=== PATIENT | female | born 1995 | race Caucasian/White ===

== ENCOUNTER → 2019-05-05 | Outpatient (CLI) | payer OTHER ==
--- NOTE | 2019-05-05 12:10 | RADIOLOGY REPORT (SQ) ---
EXAM DESCRIPTION: CHEST PA/LATERAL COMPLETED DATE/TIME: 05/05/2019 11:03 am REASON FOR STUDY: ENCOUNTER FOR SCREENING FOR RESPIRATORY TUBERCULOSIS COMPARISON: None. EXAM PARAMETERS: NUMBER OF VIEWS: two views TECHNIQUE: Digital Frontal and Lateral radiographic views of the chest acquired. RADIATION DOSE: NA LIMITATIONS: none FINDINGS: LUNGS AND PLEURA: No opacities, masses or pneumothorax. No pleural effusion. MEDIASTINUM AND HILAR STRUCTURES: No masses or contour abnormalities. HEART AND VASCULAR STRUCTURES: Heart normal size. No evidence for failure. BONES: No acute findings. HARDWARE: None in the chest. OTHER: No other significant finding. IMPRESSION: Normal study. There is no evidence of active or prior pulmonary tuberculosis. TECHNICAL DOCUMENTATION: JOB ID: [id number] [employer]- All Rights Reserved Reading location - IP/workstation name: [email or web address]
== END ==
LOC: OD 10:45
PROVIDERS: ATTEND Physician Assistant
DX: Z11.1 Encounter for screening for respiratory tuberculosis (principal)
CPT/HCPCS: 71046

== ENCOUNTER → 2020-04-04 | Outpatient (CLI) | payer OTHER ==
--- NOTE | 2020-04-04 17:50 | EKG REPORT ---
SEVERITY:- BORDERLINE ECG - SINUS TACHYCARDIA INFERIOR Q WAVES, PROBABLY NORMAL VARIATION : Confirmed by: Mykel Guerra MD 04-Apr-2020 17:50:29
== END ==
LOC: OD 13:30
PROVIDERS: ATTEND Obstetrics & Gynecology
DX: O24.119 Pre-existing type 2 diabetes mellitus, in pregnancy, unspecified trimester (principal); O10.019 Pre-existing essential hypertension complicating pregnancy, unspecified trimester
CPT/HCPCS: 93005; 93010

== ENCOUNTER 2020-08-04 11:11 | Outpatient (CLI) | payer OTHER ==
[2020-08-04] MEDS ORDERED: INSULIN REG, HUMAN 100 UNIT/ML 3 ML VIAL (PYX) SUBCUT ONE (12:09)
[2020-08-04] MEDS ORDERED: INSULIN REG, HUMAN 100 UNIT/ML 3 ML VIAL (PYX) ONE (12:17)
--- NOTE | 2020-08-04 15:21 | Non Stress Test Report ---
Non Stress Test Datetime Report Generated by CPN: 08/04/2020 15:21 DEMOGRAPHIC Test Number: 1 EGA NST: 35.0 INDICATION Indication for Study (NST) Other: NR NST in office Baby with Coartation of the aorta VITAL SIGNS Temperature - NST: 98.2 Pulse - NST: 101 RESP - NST: 16 NBPSYS NST: 105 NBPDIA NST: 54 MONITORING Monitor Explained: Monitor Explained; Test Explained; Patient Verbalized Understanding Time on Monitor: 08/04/2020 11:43 Time off Monitor: 08/04/2020 13:38 NST Duration: 115 NST INTERVENTIONS NST Interventions: PO Hydration; Reposition Patient NST Interventions Other: pt received insulin for accu chek 146 Physician Notified NST: Dinah Dean, CNM BABY A: [id number] BABY A Movement : Present Contraction Frequency : 0 FHR Baseline : 150 Accelerations : 15X15 Decelerations : None Variability : Moderate 6-25bpm NST Review: Meets Criteria for Reactive NST NST Review and Verified By : AFeuston, RN NST Results: Reactive NST REPORT Report Trigger: Send Report
--- NOTE | 2020-08-04 16:13 | RADIOLOGY REPORT (SQ) ---
EXAM DESCRIPTION: U/S PROFILE W/O STRESS IMAGES COMPLETED DATE/TIME: 08/04/2020 2:24 pm REASON FOR STUDY: Non reactive NST COMPARISON: None. TECHNIQUE: Limited quispe-scale realtime and static images of the fetus to measure specified parameter s. LIMITATIONS: None. FINDINGS: HEART RATE: 150 beats per minute. CARLOS ENRIQUE: 18.2 cm. MVP: 7.2 cm. BREATHING MOVEMENT: 0 points. MOVEMENT: 2 points. POSTURE AND TONE: 2 points. QUALITATIVE CARLOS ENRIQUE: 2 points. OTHER: No other significant finding. IMPRESSION: BIOPHYSICAL PROFILE: 12/13. Trimester of : Third - 28 weeks to delivery COMMENT: BREATHING MOVEMENTS: 2 POINTS: PRESENT 0 POINTS: ABSENT MOTION: 2 POINTS: PRESENT 0 POINTS: ABSENT TONE: 2 POINTS: PRESENT 0 POINTS: ABSENT AMNIOTIC FLUID VOLUME: 2 POINTS: LARGEST POCKET GREATER THAN 2 CM DEPTH. 0 POINTS: NO POCKET OF 2 CM. TECHNICAL DOCUMENTATION: JOB ID: [id number] [employer]- All Rights Reserved Reading location - IP/workstation name: [email or web address]
== END 2020-08-04 15:30 | disposition home or self-care (01) ==
LOC: LC 11:11
PROVIDERS: ATTEND Obstetrics & Gynecology
DX: O35.1XX0 Maternal care for (suspected) chromosomal abnormality in fetus, not applicable or unspecified (principal); O99.810 Abnormal glucose complicating pregnancy; Z3A.35 35 weeks gestation of pregnancy
CPT/HCPCS: 59025; 82962; 76819; J1815